=== PATIENT | female | born 1980 | race Caucasian/White ===

== ENCOUNTER 2019-11-19 19:22 | Emergency (ER) | payer BC, SELFPAY ==
--- NOTE | ~2019-11-19 | CT_ITS ---
EXAMINATION: CT abdomen pelvis wo con EXAM DATE: 11/19/2019 21:07 INDICATION: Right flank pain and hematuria. TECHNIQUE: Spiral CT of the abdomen and pelvis was performed without contrast. Axial, coronal and sag ittal images were reviewed. The dose-length product (DLP) for this examination was 175.94 mGy-cm. T he exposure was tailored according to patient size (auto mA exposure control), and iterative reconstr uction (ASIR) was used as additional dose reduction technique. There is no prior study for compariso n. FINDINGS: There is a 4 mm stone in the right ureteropelvic junction, with mild obstructive nephropath y. No other genitourinary calcifications. The uterus is anteverted and morphologically normal. The bladder is unremarkable. The liver, spleen, adrenal glands and pancreas are unremarkable. Gallblad audrey is unremarkable. No biliary obstruction. There is no retroperitoneal or pelvic lymphadenopathy. The appendix is not positively visualized. There is no pericecal inflammatory change to suggest appe ndicitis. The stomach and small bowel are unremarkable. There is expected amount of colonic stool. No free intraperitoneal gas. The heart is normal in size. There are no pericardial or pleural e ffusions. The lung bases are unremarkable. There are no osteoblastic or osteolytic lesions identifi ed. IMPRESSION: Right UPJ 4 mm stone, mild obstructive nephropathy. Urologist consultants would appreciat e KUB as baseline for follow-up, treatment planning. Reviewed, dictated and finalized at location A. IMPRESSION: Right UPJ 4 mm stone, mild obstructive nephropathy. Urologist consu ltants would appreciate KUB as baseline for follow-up, treatment planning.
--- NOTE | 2019-11-19 19:30 | ED.ABDPAIN ---
HPI - Abdominal Pain General Chief Complaint: Abdominal Pain Stated Complaint: abd pain/ back pain Time Seen by Provider: 11/19/19 19:37 Source: patient Mode of arrival: ambulatory Limitations: no limitations History of Present Illness HPI narrative: 39-year-old woman comes in today complaining of right-sided flank pain which has been present since last evening. Patient states that the pain got somewhat better overnight but then worse today. Patient states that she feels nauseous but has had no fever, vomiting, dysuria, hematuria, frequent urination, diarrhea, cough, cold symptoms, vaginal bleeding, vaginal discharge or injury. She states there is a family history of kidney stones but she has never had kidney stones. MD elicited complaint: flank pain Pertinent past history: other ( Endometriosis, uterine fibroids) Onset (ago): hour(s) (24) Pain Consistency: colicky Location: R flank Severity: severe Quality: aching Radiation: none Migration to: no migration Exacerbating factors: nothing Relieving factors: nothing Associated symptoms: nausea Related Data Home Medications Medication Instructions Recorded Confirmed fluoxetine 10 mg PO DAILY 11/19/19 11/19/19 lansoprazole 30 mg PO DAILY 11/19/19 11/19/19 levonorgestrel-ethinyl estrad 1 tablet PO DAILY 11/19/19 11/19/19 [Sronyx] loratadine 10 mg PO DAILY 11/19/19 11/19/19 Allergies Allergy/AdvReac Type Severity Reaction Status Date / Time No Known Allergies Allergy Unverified 04/03/14 13:33 Review of Systems Constitutional: Constitutional: Denies chills, Denies fever(s) and Denies weakness Eyes: Eyes: Denies change in vision and Denies photophobia ENT: Denies dysphagia, Denies nasal congestion and Denies sore throat Cardiovascular: Cardiovascular: Denies chest pain and Denies radiating jaw, neck or arm pain Respiratory: Respiratory: Denies cough, Denies dyspnea and Denies wheezing Gastrointestinal: Gastrointestinal: Reports abdominal pain, Denies diarrhea, Reports nausea and Denies vomiting Genitourinary: Genitourinary: Denies hematuria, Denies nocturia and Denies dysuria Musculoskeletal: Musculoskeletal: Denies back pain, Denies arthralgias and Denies joint swelling Integumentary/Breasts: Skin/Breast: Denies pruritus, Denies erythema and Denies rash Neurologic: Denies vertigo, Denies dizziness and Denies syncope Endocrine: Endocrine: Denies polydipsia and Denies polyuria Hematologic/Lymphatic: Hematologic/Lymphatic: Denies easy bleeding and Denies easy bruising Allergic/Immunologic: Allergic/Immunologic: Denies throat swelling and Denies tongue swelling PMFSH Past Medical History Medical History Endometriosis GERD (gastroesophageal reflux disease) Seasonal allergies Surgical History Surgical History History of laparoscopy Exam Const: General: healthy appearing and alert Orientation/consciousness: patient oriented x3 Limitations: no limitations Other: moderate acute distress HENMT: Ears: external ears normal, EAC's normal and TM abnormal Mouth: Yes Normal oral and palatal mucosa present and Yes moist mucous membranes Throat: posterior oropharynx normal and uvula midline Eyes: Conjunctivae: conjunctivae normal Pupils: Equal, round and reactive pupils present EOM: EOMs intact bilaterally Resp: Effort & Inspection: normal respiratory effort and not labored Auscultation: clear to auscultation bilaterally, no rales, no rhonchi and no wheezes Cardio: Rate: regular rate Rhythm: regular rhythm Heart sounds: no murmurs GI: Inspection: non-distended GI Palp: Yes Soft to palpation, No Guarding due to palpation present (GI), No Rigid due to palpation and No Palpable mass present Other: Tenderness palpation of the right upper quadrant and the right flank. : General: Yes no CVA tenderness Skin: General skin exam: normal col
[2019-11-19 19:36] VITALS: BP 136/84; PULSE 92; RESP 16; TEMP 36.9; O2SAT 99
[2019-11-19 19:39] LABS: Add Urine Microscopic? YES; Appearance Urine Clear (Clear); Bilirubin Urine Negative (Negative); Blood Urine 3+ (Negative); Color Urine Yellow (Yellow); Glucose Urine UA Negative (Negative); Ketones Urine Negative (Negative); Leukocyte Esterase Ur Negative LEU/UL (Negative); Nitrate Urine Negative (Negative); Protein Urine Trace (Negative); Specific Grav Ur >= 1.030 (1.010-1.020); pH Urine 6.5 (5.0-8.0)
[2019-11-19 19:46] LABS: Bacteria Urine 1+ /hpf; Mucus Urine Few /lpf; RBC Urine 51-75 /hpf (0-2); Squamous Epithelial Cell Urine Few /hpf (Few); WBC Urine 0-3 /hpf (0-3)
[2019-11-19] MEDS: ONDANSETRON INJ 4 MG/2 ML VIAL IV PUSH (19:51)
[2019-11-19] MEDS: HYDROMORPHONE HCL 2 MG/ML VIAL 0.5 MG IV PUSH ×2 (19:52→20:52)
[2019-11-19] MEDS: PANTOPRAZOLE SODIUM IV 40 MG VIAL IV PUSH (19:52)
[2019-11-19] MEDS: SODIUM CHLORIDE 0.9% IV 1,000 ML 999 ML IV CONT (19:52)
--- NOTE | 2019-11-19 19:56 | PC.NURSE ---
PT REPORTS LARGE FAMILY HISTORY OF KIDNEY STONES
[2019-11-19 19:58] LABS: Basophils Absolute Auto 0.03 K/mm3 (0.00-0.10); Basophils Percent Auto 0.5 % (0.0-1.0); Eosinophils Absolute Auto 0.15 K/mm3 (0.02-0.50); Eosinophils Percent Auto 2.3 % (1.0-6.0); Hematocrit 34.4 % (35.0-49.0); Immature Granulocyte Absolute 0.02 K/mm3 (0.00-0.00); Immature Granulocyte Percent A 0.3 % (0.0-0.0); Lymphocytes Absolute Auto 2.52 K/mm3 (1.10-4.50); Lymphocytes Percent Auto 38.9 % (18.0-42.0); Mean Corpuscular HGB Conc 34.9 g/dL (32.0-36.0); Mean Corpuscular Hemoglobin 30.8 pg (27.0-31.0); Mean Corpuscular Volume 88.4 fL (78.0-102.0); Mean Platelet Volume 8.6 fl (9.2-11.8); Monocytes Absolute Auto 0.52 K/mm3 (0.10-0.90); Neutrophils Absolute Auto 3.2 K/mm3 (1.7-7.2); Platelet Count Result 367 K/mm3 (150-420); Red Blood Count 3.89 M/mm3 (4.20-5.40); Red Cell Distribution Width 12.4 % (11.6-14.4); White Blood Count 6.5 K/mm3 (4.8-10.8)
[2019-11-19 20:10] LABS: INR 0.9; Partial Thromboplastin Time 26.8 SEC (22.3-31.6); Prothrombin Time 9.6 Seconds (9.64-11.0)
[2019-11-19 20:17] LABS: Alanine Aminotransferase 20 U/L (14-59); Albumin Level 3.2 g/dL (3.4-5.0); Alkaline Phosphatase 46 U/L (46-116); Anion Gap 13.3 mmol/L (7-16); Aspartate Amino Transferase 17 U/L (15-37); Bilirubin,Total 0.1 mg/dL (0.00-1.00); Blood Urea Nitrogen 11 mg/dL (7-18); Calcium 8.2 mg/dL (8.5-10.1); Carbon Dioxide 26 mmol/L (21-32); Chloride 105 mmol/L (98-108); Estimated Glomerular Filt Rate > 60; Glucose 107 mg/dL (70-99); Lipase 167 U/L (73-393); Osmolality Calculated 291 mOsm/kg (285-295); Potassium 3.3 mmol/L (3.5-5.1); Sodium 141 mmol/L (136-145)
[2019-11-19 20:24] LABS: Beta HCG Quantitative < 1.00 mIU/mL (0-6)
[2019-11-19] MEDS: KETOROLAC 30 MG/ML VIAL (*BKC) IV PUSH (20:52)
[2019-11-19 22:02] VITALS: BP 111/72; PULSE 81
== END 2019-11-19 22:04 | disposition home or self-care (01) ==
PROVIDERS: Emergency Provider Emergency Medicine; PCP Internal Medicine
DX: N20.1 Calculus of ureter (principal)
CPT/HCPCS: 36415; 74176; 80053; 81001; 83690; 84702; 85025; 85610; 85730; 96361; 96374; 96375; 96376; 99283; 99284; A9270; C9113; J1170; J1885; J2405; J7030

== ENCOUNTER 2020-04-02 11:53 | Outpatient (CLI) | payer BC, SELFPAY ==
[2020-04-02 12:03] LABS: Basophils Absolute Auto 0.03 K/mm3 (0.00-0.10); Basophils Percent Auto 0.4 % (0.0-1.0); Eosinophils Absolute Auto 0.08 K/mm3 (0.02-0.50); Eosinophils Percent Auto 0.9 % (1.0-6.0); Hematocrit 37.9 % (35.0-49.0); Hemoglobin 12.6 g/dL (12.0-15.0); Immature Granulocyte Absolute 0.04 K/mm3 (0.00-0.00); Immature Granulocyte Percent A 0.5 % (0.0-0.0); Lymphocytes Absolute Auto 1.68 K/mm3 (1.10-4.50); Lymphocytes Percent Auto 19.8 % (18.0-42.0); Mean Corpuscular HGB Conc 33.2 g/dL (32.0-36.0); Mean Corpuscular Hemoglobin 30.3 pg (27.0-31.0); Mean Corpuscular Volume 91.1 fL (78.0-102.0); Mean Platelet Volume 8.6 fl (9.2-11.8); Monocytes Absolute Auto 0.62 K/mm3 (0.10-0.90); Monocytes Percent Auto 7.3 % (2.0-11.0); Neutrophils Percent Auto 71.1 % (50.0-70.0); Platelet Count Result 380 K/mm3 (150-420); Red Blood Count 4.16 M/mm3 (4.20-5.40); White Blood Count 8.5 K/mm3 (4.8-10.8)
[2020-04-02 12:08] LABS: Appearance Urine Sl Cloudy (Clear); Bilirubin Urine Negative (Negative); Color Urine Yellow (Yellow); Glucose Urine UA Negative (Negative); Ketones Urine Negative (Negative); Leukocyte Esterase Ur Negative (Negative); Nitrate Urine Negative (Negative); Protein Urine Negative (Negative); Specific Grav Ur 1.025 (1.010-1.020); Urobilinogen Urine 0.2 mg/dL (0.2-1.0); pH Urine 5.5 (5.0-8.0)
[2020-04-02 12:12] LABS: Add Urine Microscopic? YES; Bacteria Urine Trace /hpf; Blood Urine Trace-Intact (Negative); RBC Urine 0-2 /hpf (0-2); Squamous Epithelial Cell Urine Many /hpf (Few); WBC Urine 0-3 /hpf (0-3)
[2020-04-02 12:55] LABS: Alanine Aminotransferase 18 U/L (14-59); Albumin Level 3.5 g/dL (3.4-5.0); Alkaline Phosphatase 60 U/L (46-116); Anion Gap 7 mmol/L (8-16); Aspartate Amino Transferase 12 U/L (15-37); Bilirubin,Total 0.5 mg/dL (0.00-1.00); Blood Urea Nitrogen 11 mg/dL (7-18); Calcium 8.7 mg/dL (8.5-10.1); Carbon Dioxide 27 mmol/L (21-32); Chloride 105 mmol/L (98-108); Cholesterol 229 mg/dL (0-200); Estimated Glomerular Filt Rate > 60; Glucose 85 mg/dL (70-99); HDL Direct 43 mg/dL (40-60); LDL Cholesterol Calculated 154 mg/dL (<130); Osmolality Calculated 286 mOsm/kg (285-295); Potassium 3.9 mmol/L (3.5-5.1); Sodium 139 mmol/L (136-145); Thyroid Stimulating Hormone 1.23 uIU/mL (0.36-3.74); Total Protein 7.2 g/dL (6.4-8.2); Triglycerides 162 mg/dL (0-150)
== END 2020-04-02 11:54 | disposition home or self-care (01) ==
LOC: CHSLAB 11:56
PROVIDERS: PCP Internal Medicine; Visit Provider Internal Medicine
DX: Z00.00 Encounter for general adult medical examination without abnormal findings (principal)
CPT/HCPCS: 36415; 80053; 80061; 81001; 84443; 85025

== ENCOUNTER 2020-11-24 09:20 | Outpatient (CLI) | payer BC, SELFPAY ==
--- NOTE | ~2020-11-24 | MM_ITS ---
EXAMINATION: MM screening man BI w kevin HISTORY: Baseline screening mammogram TECHNIQUE: Craniocaudal and mediolateral oblique 3-D tomosynthesis images were obtained and synthetic 2-D images were generated. CAD analysis was submitted and interpreted. COMPARISON: None, baseline BREAST PARENCHYMAL COMPOSITION: The breasts are heterogeneously dense, which may obscure small masses . FINDINGS: There is no evidence of suspicious mass, calcification, or architectural distortion to sugg est malignancy in either breast. IMPRESSION: 1. No mammographic evidence of malignancy. 2. Recommend routine screening mammography in one year. BI-RADS Category 1: Negative Reviewed, dictated and finalized at location A.
== END 2020-11-24 09:21 | disposition home or self-care (01) ==
LOC: CHSIMG 09:21
PROVIDERS: PCP Internal Medicine; Visit Provider Obstetrics & Gynecology
DX: Z12.31 Encounter for screening mammogram for malignant neoplasm of breast (principal)
CPT/HCPCS: 77063; 77067

== ENCOUNTER 2021-05-14 09:00 | Outpatient (CLI) | payer BC, SELFPAY ==
[2021-05-14 09:16] LABS: Appearance Urine Clear (Clear); Basophils Absolute Auto 0.02 K/mm3 (0.00-0.10); Basophils Percent Auto 0.4 % (0.0-1.0); Bilirubin Urine Negative (Negative); Color Urine Light Yellow (Yellow); Eosinophils Absolute Auto 0.07 K/mm3 (0.02-0.50); Eosinophils Percent Auto 1.3 % (1.0-6.0); Glucose Urine UA Negative (Negative); Hematocrit 38.7 % (35.0-49.0); Hemoglobin 13.1 g/dL (12.0-15.0); Immature Granulocyte Absolute 0.02 K/mm3 (0.00-0.00); Immature Granulocyte Percent A 0.4 % (0.0-0.0); Ketones Urine Negative (Negative); Leukocyte Esterase Ur Trace (Negative); Lymphocytes Absolute Auto 1.63 K/mm3 (1.10-4.50); Lymphocytes Percent Auto 30.5 % (18.0-42.0); Mean Corpuscular HGB Conc 33.9 g/dL (32.0-36.0); Mean Corpuscular Hemoglobin 30.3 pg (27.0-31.0); Mean Corpuscular Volume 89.4 fL (78.0-102.0); Mean Platelet Volume 8.5 fl (9.2-11.8); Monocytes Absolute Auto 0.42 K/mm3 (0.10-0.90); Monocytes Percent Auto 7.9 % (2.0-11.0); Neutrophils Absolute Auto 3.2 K/mm3 (1.7-7.2); Neutrophils Percent Auto 59.5 % (50.0-70.0); Nitrate Urine Negative (Negative); Platelet Count Result 377 K/mm3 (150-420); Protein Urine Negative (Negative); Red Blood Count 4.33 M/mm3 (4.20-5.40); Red Cell Distribution Width 12.2 % (11.6-14.4); Specific Grav Ur 1.015 (1.010-1.020); Urobilinogen Urine 0.2 mg/dL (0.2-1.0); White Blood Count 5.3 K/mm3 (4.8-10.8)
[2021-05-14 09:22] LABS: Add Urine Microscopic? YES; Bacteria Urine 1+ /hpf; Blood Urine Trace-Intact (Negative); Mucus Urine Moderate /lpf; RBC Urine 0-2 /hpf (0-2); Squamous Epithelial Cell Urine Moderate /hpf (Few)
[2021-05-14 10:17] LABS: Alanine Aminotransferase 18 U/L (14-59); Albumin Level 3.3 g/dL (3.4-5.0); Alkaline Phosphatase 47 U/L (46-116); Anion Gap 10 mmol/L (8-16); Aspartate Amino Transferase 11 U/L (15-37); Bilirubin,Total 0.4 mg/dL (0.00-1.00); Blood Urea Nitrogen 14 mg/dL (7-18); Calcium 8.3 mg/dL (8.5-10.1); Carbon Dioxide 27 mmol/L (21-32); Chloride 106 mmol/L (98-108); Cholesterol 225 mg/dL (0-200); Estimated Glomerular Filt Rate > 60; Glucose 83 mg/dL (70-99); HDL Direct 43 mg/dL (40-60); LDL Cholesterol Calculated 161 mg/dL (<130); Osmolality Calculated 295 mOsm/kg (285-295); Potassium 4.2 mmol/L (3.5-5.1); Sodium 143 mmol/L (136-145); Thyroid Stimulating Hormone 2.02 uIU/mL (0.36-3.74); Total Protein 6.9 g/dL (6.4-8.2); Triglycerides 103 mg/dL (0-150)
== END 2021-05-14 09:01 | disposition home or self-care (01) ==
LOC: CHSLAB 09:01
PROVIDERS: PCP Internal Medicine; Visit Provider Internal Medicine
DX: Z00.00 Encounter for general adult medical examination without abnormal findings (principal)
CPT/HCPCS: 36415; 80053; 80061; 81001; 84443; 85025

== ENCOUNTER 2022-02-23 07:20 | Outpatient (CLI) | payer BC, SELFPAY ==
--- NOTE | ~2022-02-23 | MM_ITS ---
EXAMINATION: MM screening man BI w kevin HISTORY: Screening mammogram TECHNIQUE: Craniocaudal and mediolateral oblique 3-D tomosynthesis images were obtained and synthetic 2-D images were generated. CAD analysis was submitted and interpreted. COMPARISON: 11/24/2020 BREAST PARENCHYMAL COMPOSITION: The breasts are heterogeneously dense, which may obscure small masses . FINDINGS: There is no suspicious mass, calcification, or architectural distortion to suggest malignan cy in either breast. There has been no suspicious interval change. IMPRESSION: 1. No mammographic evidence of malignancy. 2. Recommend routine screening mammography in one year. BI-RADS Category 1: Negative Reviewed, dictated and finalized at location A.
== END 2022-02-23 07:21 | disposition home or self-care (01) ==
LOC: CHSIMG 07:22
PROVIDERS: PCP Internal Medicine; Visit Provider Obstetrics & Gynecology
DX: Z12.31 Encounter for screening mammogram for malignant neoplasm of breast (principal)
CPT/HCPCS: 77063; 77067

== ENCOUNTER 2022-06-28 08:53 | Outpatient (CLI) | payer BC, SELFPAY | END 2022-06-28 08:54 | disposition home or self-care (01) | LOC: CHSAUDIO 08:55 | PROVIDERS: PCP Internal Medicine; Visit Provider Otolaryngology | DX: H91.93 Unspecified hearing loss, bilateral (principal); H93.13 Tinnitus, bilateral | CPT/HCPCS: 92557; 92567 ==

== ENCOUNTER 2022-07-20 06:40 | Emergency (ER) | payer BC, SELFPAY ==
[2022-07-20 06:43] VITALS: BP 125/85; PULSE 91; RESP 16; TEMP 36.6; O2SAT 100
--- NOTE | 2022-07-20 07:26 | ED.HA ---
HPI - Headache General Chief Complaint: Headache Stated Complaint: headache Time Seen by Provider: 07/20/22 07:26 Source: patient and family Mode of arrival: ambulatory Limitations: no limitations History of Present Illness HPI Narrative: Presents with left-sided migraine headaches similar to the past, over the last few days, associated with nausea. She denies any fever, chills, vomiting, respiratory symptoms, chest pain or back pain or abdominal pain. Patient when she get resistant migraine headache she started on prednisone 10 mg twice a day for 7 days, this time started on 50 mg once a day and to decrease the amount by 10 mg daily over 5 days. Related Data Home Medications Medication Instructions Recorded Confirmed fluoxetine 10 mg capsule 20 mg PO DAILY 11/19/19 06/30/21 lansoprazole 30 mg capsule,delayed 30 mg PO DAILY 11/19/19 06/30/21 release loratadine 10 mg capsule 10 mg PO DAILY 11/19/19 06/30/21 levonorgestrel-ethinyl estradiol 1 tablet PO DAILY 07/20/22 0.1 mg-20 mcg tablet (Sronyx) rimegepant 75 mg disintegrating 75 mg PO ONCE PRN Headache 07/20/22 tablet (Nurtec ODT) Allergies Allergy/AdvReac Type Severity Reaction Status Date / Time No Known Allergies Allergy Verified 07/20/22 07:39 Review of Systems Review of Systems: All systems reviewed & are unremarkable except as noted in HPI and below PMFSH Past Medical History Medical History (Updated 07/20/22 @ 09:40 by Jose Luis Ball MD) Endometriosis GERD (gastroesophageal reflux disease) Seasonal allergies Surgical History Surgical History History of laparoscopy Social History Social History Smoking status: Never smoker Alcohol intake: never Substance use: never Exam Narrative: General appearance: Well-developed, well-nourished Skin: Normal color Head: Normocephalic, nontraumatic Eyes: Clear conjunctiva ENT: Oropharynx normal, ears normal, nose normal Neck: Supple, nontender Chest and respiratory: Airway patent, no respiratory distress, no accessory muscle use Heart: Regular rate/rhythm Abdomen: Soft, nontender, no organomegaly, quiet bowel sounds Vascular: Normal peripheral pulses, normal capillary refill. Musculoskeletal: Normal range of motion, nontender back Neurologic: Alert and oriented ?3, [employer] is normal as tested, no gross motor deficit Course Vital Signs Vital signs: Vital Signs Temperature 36.6 C 07/20/22 06:43 Pulse Rate 91 07/20/22 06:43 Respiratory Rate 16 07/20/22 06:43 Blood Pressure 125/85 07/20/22 06:43 Pulse Oximetry 100 07/20/22 06:43 Oxygen Delivery Room Air 07/20/22 06:43 Temperature 36.6 C 07/20/22 06:43 Pulse Rate 91 07/20/22 06:43 Respiratory Rate 16 07/20/22 06:43 Blood Pressure 125/85 07/20/22 06:43 Pulse Oximetry 100 07/20/22 06:43 Oxygen Delivery Room Air 07/20/22 06:43 MDM - Headache Differential Diagnosis Differential diagnosis: Likely migraine, tension headache, headache and sinusitis Critical Care Time Critical Care Time Critical Care Time: Yes Total Critical Care Time: 30 Discharge Plan Discharge Clinical Impression: Migraine Patient Disposition: Home, Self-Care Condition: Improved Instructions: Antibiotic Form, Migraine Headache (ED) Additional Instructions: Return if symptoms are worsening , call your family physician for appointment, take Tylenol as as needed for aches and pain, continue home medications. Prescriptions: No Action lansoprazole 30 mg capsule,delayed release(DR/EC) 30 mg PO DAILY fluoxetine 10 mg cap
[2022-07-20] MEDS: diphenhydrAMINE HCl INJ 50 MG/ML VIAL IV PUSH (08:39)
[2022-07-20] MEDS: METOCLOPRAMIDE HCL INJ 10 MG/2 ML VIAL IV PUSH (08:40)
[2022-07-20] MEDS: SODIUM CHLORIDE 0.9% IV 1,000 ML 999 ML IV CONT (08:40)
[2022-07-20] MEDS: KETOROLAC 30 MG/ML VIAL (*BKC) IV PUSH (08:40)
[2022-07-20 09:51] VITALS: BP 103/79; PULSE 80; RESP 16; O2SAT 100
== END 2022-07-20 09:54 | disposition home or self-care (01) ==
PROVIDERS: Emergency Provider Emergency Medicine; PCP Internal Medicine
DX: G43.909 Migraine, unspecified, not intractable, without status migrainosus (principal); K21.9 Gastro-esophageal reflux disease without esophagitis; N80.9 Endometriosis, unspecified
CPT/HCPCS: 96361; 96374; 96375; 99284; J1200; J1885; J2765; J7030

== ENCOUNTER 2023-07-20 10:57 | Outpatient (CLI) | payer BC, SELFPAY ==
--- NOTE | ~2023-07-20 | MM_ITS ---
EXAMINATION: MM screening [facility] BI w kevin HISTORY: Screening mammogram TECHNIQUE: Craniocaudal and mediolateral oblique 3-D tomosynthesis images were obtained and synthetic 2-D images were generated. CAD analysis was submitted and interpreted. COMPARISON: 02/23/2022, 11/24/2020 BREAST PARENCHYMAL COMPOSITION: The breasts are heterogeneously dense, which may obscure small masses . FINDINGS: No suspicious mass, calcification, or architectural distortion are identified in either sylvie ast to suggest malignancy. There has been no suspicious interval change. IMPRESSION: 1. No mammographic evidence of malignancy. 2. Recommend routine screening mammography in one year. BI-RADS Category 1: Negative Reviewed, dictated and finalized at location A. [employer]
== END 2023-07-20 10:58 | disposition home or self-care (01) ==
LOC: CHSIMG 10:59
PROVIDERS: PCP Internal Medicine; Visit Provider Obstetrics & Gynecology
DX: Z12.31 Encounter for screening mammogram for malignant neoplasm of breast (principal)
CPT/HCPCS: 77063; 77067

== ENCOUNTER 2024-10-17 07:15 | Outpatient (CLI) | payer BC, SELFPAY ==
--- NOTE | ~2024-10-17 | MM_ITS ---
EXAMINATION: MM screening man BI w kevin HISTORY: Screening TECHNIQUE: Craniocaudal and mediolateral oblique 3-D tomosynthesis images were obtained and synthetic 2-D images were generated. CAD analysis was submitted and interpreted. COMPARISON: Comparison to multiple prior studies sequentially, with oldest reviewed study dated 11/24. BREAST PARENCHYMAL COMPOSITION: Not dense: There are scattered areas of fibroglandular density. FINDINGS: There is no evidence of suspicious mass, calcification, or architectural distortion to sugg est malignancy in either breast. There has been no suspicious interval change. IMPRESSION: 1. No mammographic evidence of malignancy. 2. Recommend routine screening mammography in one year. BI-RADS Category 1: Negative Reviewed, dictated and finalized at location A.
--- OUTSIDE RECORDS SUMMARY | 2024-10-17 07:18 | XMS_ITS | Clinical Summary ---
Author Organization [facility], formerly [facility] Address [address] [address] Care Team Providers Care Turf Keeper Name Role Phone Josh Lopez MD Primary Care Provider [phone] Marquis Tesfaye MD Unavailable [phone] Allergies No known active allergies Medications lansoprazole (PREVACID) 30 mg capsule Take by mouth Activ e FLUoxetine (PROzac) 20 mg capsule 09/09/19 22 Active loratadine (CLARITIN) 10 mg tablet Active levonorgestreL -ethinyl estrad (LUTERA) 0.1-20 mg-mcg per tablet Active Saccharomyces boulardii (FLORASTOR) 250 mg capsule Take by mouth A ctive ondansetron (ZOFRAN) 4 mg tablet Take 1-2 tablets by mouth 30 minutes prior to drinking colonoscopy prep. May repeat with second dose. 4 tablet 04/24/20 22 Active Additional Information Patient not taking.Reported on 10/10/2024 rimegepant (Nurtec ODT) tablet,disinte gratingIndicat ions:Migraine Take 1 tablet (75 mg total) by mouth every other day 16 tablet 11 10/13/19 23 Active Additional Information Patient not taking.Reported on 10/10/2024 predniSONE (DELTASONE) 10 mg tablet Take 5 tablets (50mg) by mouth on day one, then 4 tablets (40mg) on day 2 and continue to decrease by 1 tablet (10mg) daily until finished 15 tablet 07/18/19 23 025 Discontinued Active Problems Problem Noted Date Diagnosed Date Blood in stool 02/19/2020 Overview (02/19/2020): Added automatically from request for surgery [id number] Personal history of colonic polyps 02/19/2020 Overview (02/19/2020): Added automatically from request for surgery [id number] Constipation 10/26/2016 Adenoma of large intestine 06/21/2016 Altered bowel function 06/16/2015 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 Anxiety 10/07/2014 Chronic migraine with aura 10/07/2014 Headache 11/29/2013 Overview (10/20/2016): HEADACHE Asthma 11/29/2013 Overview (10/20/2016): ASTHMA NOS Hyperlipidemia 11/29/2013 Overview (10/20/2016): HYPERLIPIDEMIA NEC/NOS Encounters Date Type Department Care Team Description 10/16/2024 2:25 PM CDT Lab [address] [address] Thrombocytosis 10/16/2024 Results Follow-Up [facility] [address] [place] [phone] Ann Marie Villavicencio MD 10/14/2024 Orders Only [facility] [address] [place] [phone] Pat Butler 10/10/2024 10:15 AM CDT Lab [facility] - Lab Collection [address] [place] [id number] Thrombocytosis 10/10/2024 10:00 AM CDT Lab [facility] [address] [place] [phone] 10/10/2024 9:00 AM CDT Office Visit [facility] [address] [place] [phone] Ann Marie Villavicencio MD Thrombocytosis (Primary Dx); Elevated platelet count 10/03/2024 Telephone [facility] [address] [place] [phone] Vesna Stephens from Last 3 Months Immunizations Immunization Administration Dates Next Due Influenza, Quadrivalent, Spl it, Preservative Free, Intramuscular 04/27/2021,03/31/2020,03/26/2019 Influenza, Unspecified 04/07/2018 Tdap 04/27/2021 Surgical History Surgery Date Site/Laterality Comments LAPAROSCOPY Exploratory Laparoscopy - (Added by TW Conv) Medical History Medical History Date Comments Asthma Asthma Hyperlipidemia Hyperlipidemia Hx Other Medical Headache, migra ine Personal history of other di seases of the female genital tract History of endometriosis - ( Added by TW Conv) Family History Medical History Relation Name Comments Coronary artery disease Mother Leora nary artery disease; Hyperlipidemia Mother Hyperlipidemi a; Migraines Mother Family history of migraine headaches - (Added by TW Conv) Relation Name Status Comments Mother Social History Tobacco Use Types Packs/Day Years Used Date Smoking Tobacco: Former Cigarettes Passive Smoke Exposure: Never Smokeless Tobacco: Never Tobacco Cessation:Counseling Given: Not Answered Alcohol Use Standard Drinks/Week Comments No 0 (1 standard drink = 0.6 oz pur e alcohol) AUDIT-C Answer Date Recorded Frequency of Alcohol Consumption Not on file 05/01/2022 Q2: How many drinks containi ng alcohol do you have on a typical day when you are drinking? Patient does not drink Frequency of Binge Drinking Not on file 04/15 Comments No Sex and Gender Information Value Date Recorded Sex Assigned at Not on file Legal Sex Female 2:45 PM DONATIONS ATTENDANT Gender Identity Not on file Sexual Orientation Not on file Obstetrics History Last Filed Vital Signs Vital Sign Reading Time Taken Comments Blood Pressure 121/74 10/10/2024 9:01 AM CDT Pulse 76 10/10/2024 9:01 AM CDT Temperature 36.6 C (97.8 F) 10/10/2024 9:01 AM CDT Respiratory Rate 17 05/01/2022 8:40 AM CDT Oxygen Saturation 99% 10/10/2024 9:01 AM CDT Inhaled Oxygen Concentration - - Weight 61.5 kg (135 lb 9.6 oz) 10/10/2024 9:01 A M CDT Height 158 cm (5' 2.2 ) 10/10/2024 9:01 AM CDT Body Mass Index 24.64 10/10/2024 9:01 AM CDT Plan of Treatment Health Maintenance Due Date Last Done Comments Breast Cancer Screening-Mammogram 1980 Cervical Cancer Screening 1980 Depression Screening 1980 Hepatitis C Screening 1978 Hepatitis B Screening 1996 Regular Well Visit/Exam 18-64 1996 Pneumococcal vaccine <65 (1 of 2 - PCV) 1997 Covid-19 Vaccine ( - season) 2024 07/22/2021, 10/15/2020, 09/17/2020 Influenza Vaccine (Season Ended) 2025 04/27/2021, 03/31/2020, 03/26/2019, Additional history exists DTaP/Tdap/Td Vaccine (2 - Td or Tdap) 04/27/2031 04/27/2021 Colon Cancer Screening-Colonoscopy 05/01/2032 05/01/2022, 09/18/2016, 07/26/2015 HPV Vaccines Aged Out No longer eligi ble based on patient's age to complete this topic Procedures Procedure Name Priority Date/Time Associated Diagnosis Comments EGFR Routine 10/16/2024 2:39 PM CDT Thrombocytosis BLOOD MISC TO OSAGE Routine 10/16/2024 2: 39 PM CDT DIFFERENTIAL AUTO Routine 10/16/2024 2:3 9 PM CDT Thrombocytosis COMPREHENSIVE METABOLIC PANEL Routine 10/16/2024 2:39 PM CDT Thrombocytosis CBC WITH AUTO DIFFERENTIAL Routine 10/16/2024 2:39 PM CDT Thrombocytosis EGFR Routine 10/10/2024 10:11 AM CDT Thrombocytosis DIFFERENTIAL AUTO Routine 10/10/2024 10: 11 AM CDT Thrombocytosis CRP (ACUTE PHASE) Routine 10/10/2024 10: 11 AM CDT Thrombocytosis ERYTHROCYTE SEDIMENTATION RATE Routine 10/10/2024 10:11 AM CDT Thrombocytosis FERRITIN Routine 10/10/2024 10:11 AM CDT Thrombocytosis IRON PROFILE W/ IBC Routine 10/10/2024 1 0:11 AM CDT Thrombocytosis COMPREHENSIVE METABOLIC PANEL Routine 10/10/2024 10:11 AM CDT Thrombocytosis CBC WITH AUTO DIFFERENTIAL Routine 10/10/2024 10:11 AM CDT Thrombocytosis FARHEEN-WHITNEY VIRUS VCA ANTIBODY PANEL Routine 10/10/2024 10:11 AM CDT Thrombocytosis COLONOSCOPY 05/01/2022 7:59 AM CDT from Last 3 Months or Most Recently Relevant to Health Maintenance Results * eGFR (10/16/2024 2:39 PM CDT) eGFR >90 >=60 mL/min/1. 73 m2 Comment: Interpretive Data Reference Interval Normal >/= 90 mL/min/1.73m2 Mildly decreased* 60 - 89 mL/min/1.73m2 Mildly to moderately decreased 45 - 59 mL/min/1.73m2 Moderately to severely decreased 30 - 44 mL/min/1.73m2 Severely decreased 15 - 29 mL/min/1.73m2 Kidney Failure < 15 mL/min/1.73m2 *Relative to young adult level Estimated glomerular filtration rate is determined by the 2020 CKD-EPI equation recommended by the National Kidney Foundation (A Unifying Approach to GFR Estimation: Recommendations of the NKF-ASK Task Force on Reassessing the Inclusion of Race in Diagnosing Kidney Disease, JASN 202). The CKD-EPI equation should not be used for patients with unstable renal function and has not been validated in children and those over 70. Current interpretive data was last reviewed 2021. Blood 10/16/2024 2:39 PM CDT 10/16/2024 2:45 PM CDT us Ann Marie Villavicencio MD LAB BLOOD ORDERABLES Tiffani palumbo Result [facility] ([facility]) 1 [facility] Department [place] [address] * Differential, auto (10/16/2024 2:39 PM CDT) Neutrophil abs 4.55 1.50 - 6.50 K/cumm Imm gran abs 0.03 0.00 - 0.10 K/cumm [facility] ([facility]) Lymphocyte abs 2.52 0.80 - 3.30 K/cumm [facility] ([facility]) Monocyte abs 0.65 0.20 - 0.80 K/cumm [facility] ([facility]) Eosinophil abs 0.11 0.00 - 0.50 K/cumm [facility] ([facility]) Basophil abs 0.05 0.00 - 0.10 K/cumm [facility] ([facility]) Neutrophil pct 57.5 % [facility] ([facility]) Comment: Interpretive Data Percent cell count reference ranges are not reported, since discordance with absolute values may lead to misinterpretation of CBC data. Current Interpretive Data was last revised on 2017. Imm gran pct 0.4 % [facility] ([facility]) Comment: Interpretive Data Percent cell count reference ranges are not reported, since discordance with absolute values may lead to misinterpretation of CBC data. Current Interpretive Data was last revised on 2017. Lymphocyte pct 31.9 % [facility] ([facility]) Comment: Interpretive Data Percent cell count reference ranges are not reported, since discordance with absolute values may lead to misinterpretation of CBC data. Current Interpretive Data was last revised on 2017. Monocyte pct 8.2 % [facility] ([facility]) Comment: Interpretive Data Percent cell count reference ranges are not reported, since discordance with absolute values may lead to misinterpretation of CBC data. Current Interpretive Data was last revised on 2017. Eosinophil pct 1.4 % [facility] ([facility]) Comment: Interpretive Data Percent cell count reference ranges are not reported, since discordance with absolute values may lead to misinterpretation of CBC data. Current Interpretive Data was last revised on 2017. Basophil pct 0.6 % [facility] ([facility]) Comment: Interpretive Data Percent cell count reference ranges are not reported, since discordance with absolute values may lead to misinterpretation of CBC data. Current Interpretive Data was last revised on 2017. Blood 10/16/2024 2:39 PM CDT 10/16/2024 2:45 PM CDT Ann Marie Villavicencio MD LAB BLOOD ORDERABLES Tiffani palumbo Result [facility] ([facility]) 1 [facility] Department [place] [address] * (ABNORMAL) CBC with auto differential (10/16/2024 2:39 PM CDT) WBC 7.91 3.80 - 9.90 K/cumm Hgb 12.4 11.9 - 15.5 g/dL [facility] Hct 36.1 35.6 - 45.5 % [facility] ([facility]) Plt 397 150 - 400 K/cumm [facility] ([facility]) MPV 8.6(L) 9.1 - 12.3 fL [facility] RBC 4.09 3.90 - 5.20 M/cumm [facility] MCV 88.3 81.3 - 96.4 fL [facility] MCH 30.3 27.1 - 33.3 pg [facility] MCHC 34.3 32.3 - 35.7 g/dL [facility] RDW CV 12.4 11.1 - 14.9 % [facility] RDW SD 39.8 35.7 - 48.1 fL [facility] NRBC abs 0.00 0.00 - 0.01 K/cumm [facility] Blood 10/16/2024 2:3 9 PM CDT 10/16/2024 2:45 PM CDT us Ann Marie Villavicencio MD LAB BLOOD ORDERABLES Tiffani palumbo Result [facility] ([facility]) 1 [facility] Department [place] [address] * Comprehensive metabolic panel (10/16/2024 2:39 PM CDT) Sodium 137 135 - 145 mmol/L Potassium, pl 3.8 3.3 - 4.9 mmol/L [facility] ([facility]) Chloride 102 97 - 110 mmol/L [facility] ([facility]) CO2 24 22 - 32 mmol/L [facility] ([facility]) Anion gap 11 2 - 15 mmol/L [facility] ([facility]) BUN 10 6 - 25 mg/dL [facility] ([facility]) Creatinine 0.67 0.60 - 1.10 mg/dL [facility] ([facility]) Glucose 82 70 - 199 mg/dL [facility] ([facility]) Comment: Interpretive Data Fasting glucose >/= 126 mg/dl is diagnostic for diabetes. Fasting is defined as no caloric intake for at least 8 hours. Fasting glucose between 100 mg/dl to 125 mg/dl is diagnostic of prediabetes. In a patient with classic symptoms of hyperglycemia or hyperglycemic crisis, a random glucose >/= 200 mg/dl is diagnostic for diabetes. In the absence of unequivocal hyperglycemia, results should be confirmed by repeat testing. The classification and Diagnosis of Diabetes Diabetes Care 202; 46: S19-S40. Current interpretive data was last revised 2022. Calcium 8.8 8.5 - 10.3 mg/dL [facility] ([facility]) Bilirubin, total <0.2 0.1 - 1.2 mg/dL [facility] ([facility]) Protein, pl 7.1 6.5 - 8.5 g/dL [facility] ([facility]) Albumin 4.0 3.5 - 5.0 g/dL [facility] ([facility]) Alk phos 54 40 - 130 Units/L [facility] ([facility]) ALT 12 7 - 45 Units/L [facility] ([facility]) AST 15 10 - 45 Units/L [facility] ([facility]) Blood 10/16/2024 2:39 PM CDT 10/16/2024 2:45 PM CDT us Ann Marie Villavicencio MD LAB BLOOD ORDERABLES Tiffani l Result [facility] ([facility]) 1 [facility] Department [place] [address] * eGFR (10/10/2024 10:11 AM CDT) eGFR >90 >=60 mL/min/1. 73 m2 Comment: Interpretive Data Reference Interval Normal >/= 90 mL/min/1.73m2 Mildly decreased* 60 - 89 mL/min/1.73m2 Mildly to moderately decreased 45 - 59 mL/min/1.73m2 Moderately to severely decreased 30 - 44 mL/min/1.73m2 Severely decreased 15 - 29 mL/min/1.73m2 Kidney Failure < 15 mL/min/1.73m2 *Relative to young adult level Estimated glomerular filtration rate is determined by the 2020 CKD-EPI equation recommended by the National Kidney Foundation (A Unifying Approach to GFR Estimation: Recommendations of the NKF-ASK Task Force on Reassessing the Inclusion of Race in Diagnosing Kidney Disease, JASN 2020). The CKD-EPI equation should not be used for patients with unstable renal function and has not been validated in children and those over 70. Current interpretive data was last reviewed 2021. Blood 10/10/2024 10:1 1 AM CDT 10/10/2024 10:38 AM CDT Ann Marie Villavicencio MD LAB BLOOD ORDERABLES Tiffani l Result MILENA [facility] Department [place] [address] * Differential, auto (10/10/2024 10:11 AM CDT) Neutrophil abs 5.9 1.5 - 6.5 K/cumm Comment:Testing performed by : [facility], [address] [place] [address], [place] [phone] Lymphocyte abs 2.0 0.8 - 3.3 K/cumm [facility] Comment:Testing performed by : [facility], [facility] [place] [address] Monocyte abs 0.5 0.2 - 0.8 K/cumm [facility] Comment:Testing performed by : [facility], [address] [place] [phone] Eosinophil abs 0.1 0.0 - 0.5 K/cumm [facility] Comment:Testing performed by : [facility], [address] [place] [phone] Basophil abs 0.0 0.0 - 0.1 K/cumm [facility] Comment:Testing performed by : [facility], [address] [place] [phone] Neutrophil pct 69.6 % [facility] Comment: Interpretive Data Percent cell count reference ranges are not reported, since discordance with absolute values may lead to misinterpretation of CBC data. Current Interpretive Data was last revised on 2017. Testing performed by: [facility], [address] [place] [phone] Lymphocyte pct 23.6 % [facility] Comment: Interpretive Data Percent cell count reference ranges are not reported, since discordance with absolute values may lead to misinterpretation of CBC data. Current Interpretive Data was last revised on 2017. Testing performed by: [facility], [address] [place] [phone] Monocyte pct 5.3 % [facility] Comment: Interpretive Data Percent cell count reference ranges are not reported, since discordance with absolute values may lead to misinterpretation of CBC data. Current Interpretive Data was last revised on 2017. Testing performed by: [facility], [address] [place] [phone] Eosinophil pct 1.1 % [facility] Comment: Interpretive Data Percent cell count reference ranges are not reported, since discordance with absolute values may lead to misinterpretation of CBC data. Current Interpretive Data was last revised on 2017. Testing performed by: [facility], [address] [place] [phone] Basophil pct 0.4 % [facility] Comment: Interpretive Data Percent cell count reference ranges are not reported, since discordance with absolute values may lead to misinterpretation of CBC data. Current Interpretive Data was last revised on 2017. Testing performed by: [facility], [address] [place] [phone] Blood 10/10/2024 10:1 1 AM CDT 10/10/2024 10:35 AM CDT Ann Marie Villavicencio MD LAB BLOOD ORDERABLES Tiffani l Result [facility] [place] [address] * Iron profile w/ IBC (10/10/2024 10:11 AM CDT) Iron 93 35 - 145 mcg/dL TIBC 392 250 - 400 mcg/dL [facility] Transferrin saturation 24 20 - 50 % [facility] Blood 10/10/2024 10:1 1 AM CDT 10/10/2024 10:38 AM CDT Ann Marie Villvaicencio MD LAB BLOOD ORDERABLES Tiffani l Result Performing Organization Address City/[facility]/ZIP Co de Phone Number [facility] [place] [address] * (ABNORMAL) CBC with auto differential (10/10/2024 10:11 AM CDT) WBC 8.5 3.8 - 9.9 K/cumm Comment:Testing performed by : [facility], [address] [place] [phone] Hgb 13.0 11.9 - 15.5 g/dL [facility] Comment:Testing performed by : [facility], [address] [place] [phone] Hct 37.8 35.6 - 45.5 % [facility] Comment:Testing performed by : [facility], [address] [place] [address] Plt 461(H) 150 - 400 K/cumm [facility] Comment:Testing performed by : [facility], [address] [place], [place] [phone] MPV 7.4 6.8 - 10.4 fL [facility] Comment:Testing performed by : [facility], [address] [place], [place] [phone] RBC 4.32 3.90 - 5.20 M/cumm [facility] Comment:Testing performed by : [facility], [address] [place], [place] [phone] MCV 87.6 81.3 - 96.4 fL [facility] Comment:Testing performed by : [facility], [address] [place], [place] [phone] MCH 30.0 27.1 - 33.3 pg [facility] Comment:Testing performed by : [facility], [address] [place] [address] MCHC 34.3 32.3 - 35.7 g/dL [facility] Comment:Testing performed by : [facility], [address] [place] [address] RDW CV 12.9 11.1 - 14.9 % [facility] Comment:Testing performed by : [facility], [address] [place] [address] NRBC abs 0.00 0.00 - 0.01 K/cumm [facility] Comment:Testing performed by : [facility], [address] [place] [address] Blood 10/10/2024 10:1 1 AM CDT 10/10/2024 10:35 AM CDT us Ann Marie Villavicencio MD LAB BLOOD ORDERABLES Tiffani l Result [facility] Department [place] [address] * (ABNORMAL) Farheen-Whitney virus (EBV) antibody panel Blood (10/10/2024 10:11 AM CDT) Pathologist [facility] EBV nuclear Ab Positive(A) Negative Comment:Indicates the presen ce of detectable IgG antibody to EBV Nuclear Antigen. EBV VCA IgG Positive(A) Negative [facility] Comment:Indicates the presen ce of antibody; 90% of the adult population will have been infected with EBV sometime in the past. EBV VCA IgM Negative Negative [facility] Comment:No detectable IgM an tibody to EBV-VCA. A negative result indicates no current infection with EBV. If clinical suspicion of acute EBV infection is present, testing should be repeated after one week. EBV interp Past Infection [facility] Blood 10/10/2024 10:1 1 AM CDT 10/10/2024 11:18 AM CDT Ann Marie Villavicencio MD LAB MICROBIOLOGY - GENERA L ORDERABLES Final Result [facility] Department [place] [address] * (ABNORMAL) Erythrocyte sedimentation rate (10/10/2024 10:11 AM CDT) [facility] Erythrocyte sedimentation rate 23(H) 1 - 20 mm/hr Blood 10/10/2024 10:1 1 AM CDT 10/10/2024 11:19 AM CDT Ann Marie Villavicencio MD LAB BLOOD ORDERABLES Tiffani l Result [facility] [place] [address] * CRP (acute phase) (10/10/2024 10:11 AM CDT) [facility] CRP 7.0 <=10.0 mg/L Blood 10/10/2024 10:1 1 AM CDT 10/10/2024 11:04 AM CDT Ann Marie Villavicencio MD LAB BLOOD ORDERABLES Tiffani l Result [facility] [place] [address] * Ferritin (10/10/2024 10:11 AM CDT) Pathologist [facility] Ferritin 64 13 - 150 ng/mL Blood 10/10/2024 10:1 1 AM CDT 10/10/2024 10:38 AM CDT Ann Marie Villavicencio MD LAB BLOOD ORDERABLES Tiffani l Result Performing Organization Address [facility] Co de Phone Number [facility] [place] [address] * Comprehensive metabolic panel (10/10/2024 10:11 AM CDT) [facility] Sodium 140 135 - 145 mmol/L Potassium, pl 3.8 3.3 - 4.9 mmol/L [facility] Chloride 105 97 - 110 mmol/L [facility] CO2 26 22 - 32 mmol/L [facility] Anion gap 9 2 - 15 mmol/L [facility] BUN 11 6 - 25 mg/dL [facility] Creatinine 0.71 0.60 - 1.10 mg/dL [facility] Glucose 82 70 - 199 mg/dL [facility] Comment: Interpretive Data Fasting glucose >/= 126 mg/dl is diagnostic for diabetes. Fasting is defined as no caloric intake for at least 8 hours. Fasting glucose between 100 mg/dl to 125 mg/dl is diagnostic of prediabetes. In a patient with classic symptoms of hyperglycemia or hyperglycemic crisis, a random glucose >/= 200 mg/dl is diagnostic for diabetes. In the absence of unequivocal hyperglycemia, results should be confirmed by repeat testing. The classification and Diagnosis of Diabetes Diabetes Care 202; 46: S19-S40. Current interpretive data was last revised 2022. Calcium 8.9 8.5 - 10.3 mg/dL [facility] [place] Bilirubin, total 0.3 0.1 - 1.2 mg/dL [facility] [place]] Protein, pl 7.7 6.5 - 8.5 g/dL [facility] [place]] Albumin 4.0 3.5 - 5.0 g/dL [facility] Alk phos 57 40 - 130 Units/L [facility] ALT 15 7 - 45 Units/L [facility] AST 17 10 - 45 Units/L [facility] Blood 10/10/2024 10:1 1 AM CDT 10/10/2024 10:38 AM CDT us Ann Marie Villavicencio MD LAB BLOOD ORDERABLES Tiffani l Result [facility] Department [place] [address] * COLONOSCOPY (05/01/2022 7:59 AM CDT) Anatomical Region Laterality Modality Other Narrative Procedure Note Mehnaz Childs MD - 05/01/2022 7:59 AM CDT ENDOSCOPY LAB Patient Name: Teresa Saunders Procedure Date: 05/01/2022 7:59 AM Date of : 1980 Admit Type: Outpatient Age: 41 Gender: Female Attending MD: Mehnaz Childs M.D. Room: [facility] ENDOSCOPY ROOM 01 Note Status: Finalized Procedure: Colonoscopy Indications: High risk colon cancer surveillance: Personalhistory of colonic polyps, Last colonoscopy: September 2016 Providers: Mehnaz Childs M.D. Referring MD: Josh Lopez M.D. Medicines: Monitored Anesthesia Care Complications: No immediate complications. Estimated blood loss: Minimal. Estimated Blood Loss: Estimated blood loss was minimal. Procedure: Pre-Anesthesia Assessment: - Immediately prior to administration ofmedications, the patient was re-assessed for adequacy to receive sedatives. The benefits, risks and alternatives of theprocedure and sedation were discussed and informed consentwas obtained. All questions were answered. Please referto the signed informed consent document in the medical record. The scope was passed under direct vision.The [id number] was introduced through the anusand advanced to the cecum, identified by appendiceal orifice and ileocecal valve. The colonoscopy was performed without difficulty. The patient tolerated the procedure well. The quality of the bowel preparation was evaluated using the BBPS (BostonBowel Preparation Scale) with scores of: Right Colon = 3, Transverse Colon = 3 and Left Colon = 3 (entiremucosa seen well with no residual staining, smallfragments of stool or opaque liquid). The total BBPS score equals 9. Findings: The digital rectal exam was normal. An 8 mm polyp was found in the cecum. The polyp was flat. The polypwas removed with a cold snare. Resection and retrieval were complete. A 3 mm polyp was found in the ascending colon. The polyp was sessile. The polyp was removed with a cold snare. Resection and retrieval were complete. The retroflexed view of the distal rectum and anal verge was normaland showed no anal or rectal abnormalities. Impression: - One 8 mm polyp in the cecum, removed with a cold snare. Resected and retrieved. - One 3 mm polyp in the ascending colon, removedwith a cold snare. Resected and retrieved. - The distal rectum and anal verge are normal on retroflexion view. Recommendation: - Follow-up biopsy results. Please call the officeif you do not receive results in 2 weeks. - Patient has a contact number available for emergencies. The signs and symptoms of potential delayed complications were discussed with thepatient. Return to normal activities tomorrow. Written discharge instructions were provided to thepatient. - Contact Information: During normal business hours - [facility] [place] Coordinator: [phone] After hours, evening, nights, weekends and holidays- Please call the hospital coal briquette machine operator at and ask for the GI fellow construction carpenters helper. Electronically by Dr Mehnaz Childs Mehnaz Childs M.D. 05/01/2022 8:25:36 AM Number of Addenda: 0 Note Initiated On: 05/01/2022 7:59 AM Mehnaz Childs MD ENDOSCOPY PROCEDURES Final Result from Last 3 Months or Most Recently Relevant to Health Maintenance Insurance [employer] [place] Advance Directives For more information, please contact: [phone] * Full Code (Latest Code Status on File) Date Activated Date Inactivated Comments 05/01/2022 7:06 AM 05/01/2022 1:01 PM Care Teams Turf Keeper Relationship Specialty Start Date End Date Josh Lopez MD PCP - General 09/11/16 Marquis Tesfaye MD 09/11/16
--- OUTSIDE RECORDS SUMMARY | 2024-10-17 07:18 | XMS_ITS | Encounter Summary ---
Author Organization [facility] Address [address] [place] [address] Phone Care Team Providers Care Ampoule Filler Name Role Phone Josh Lopez MD Primary Care Provider [phone] Marquis Tesfaye MD Unavailable [phone] Encounter Details Date Type Department Care Team (Late st Contact Info) Description 10/14/2024 Orders Only [facility] Hematology [address] [place] [id number] Pat Butler Social History Tobacco Use Types Packs/Day Years Used Date Smoking Tobacco: Former Cigarettes Passive Smoke Exposure: Never Smokeless Tobacco: Never Alcohol Use Standard Drinks/Week Comments No 0 [...] on file 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
--- OUTSIDE RECORDS SUMMARY | 2024-10-17 07:18 | XMS_ITS | Clinical Summary ---
Author Organization [facility] Address [address] [place] [address] Care Team Providers Care Burnishing Machine Operator Name Role Phone Josh Lopez MD Primary Care Provider [phone] [facility]non-owned Affiliates and Associated Physician Practices is amultiple site organization consisting of ambulatory clinics and hospital sitesin [place], [place], [place] and [place]. This disclosure is being madepursuant to the Care Everywhere program and may not contain all information available regarding this patient. Last updated 18.[facility] Allergies No known active allergies Medications * Be aware that medications may not be up to date on this document. Alwaysverify current medications with the patient. Medication Sig Dispensed Refills Start Date End Date Status Saccharomyces boulardii (FLORASTOR PO) Active LORATADINE PO Active fluticasone furoate (FLONASE SENSIMIST/VERAMYST) 27.5 MCG/SPRAY nasal spray [place] 1 [place] into each nostril 2 times daily Active LANSOPRAZOLE PO Active FLUoxetine (PROZAC) 10 MG capsule Take 10 mg by mouth once daily Active clonazePAM (KLONOPIN) 0.5 MG tablet Take 0.5 mg by mouth 2 times daily Active levonorgestrel-ethiny l estradiol (SRONYX) 0.1-20 MG-MCG tablet Take 1 tablet by mouth once daily Active predniSONE (DELTASONE) 20 MG tabletIndications:Acu te sinusitis, recurrence not specified, unspecified location Take 1 tablet by mouth 2 times daily 14 tablet 06/13/2018 Active albuterol HFA (VENTOLIN HFA) 108 (90 BASE) MCG/ACT inhalerIndications:Ac cale bronchitis, unspecified organism Inhale 2 puffs by mouth every 4 hours as needed for Wheezing or Cough 1 Inhaler 06/13/2018 Active Active Problems No known active problems Social History Tobacco Use Types Packs/Day Years Used Date Smoking Tobacco: Never Smokeless Tobacco: Never Sex and Gender Information Value Date Recorded Sex Assigned at Not on file Gender Identity Not on file Sexual Orientation Not on file Last Filed Vital Signs Vital Sign Reading Time Taken Comments Blood Pressure 110/70 06/13/2018 4:24 PM ASSEMBLER [employer]QUIPMENT Pulse 72 06/13/2018 4:24 PM [employer]SEM[employer] Temperature 36.8 C (98.3 F) 06/13/2018 4:24 PM ASSEM[employer]MENT Respiratory Rate 16 06/13/2018 4:24 PM ASSEMBLER [employer]QU[employer]MENT Oxygen Saturation 98% 06/13/2018 4:24 PM ASSEMBLER [employer]QU[employer]MENT Inhaled Oxygen Concentration - - Weight 52.6 kg (116 lb) 06/13/2018 4:24 PM ASSEM[employer] Height 157.5 cm (5' 2 ) 06/13/2018 4:24 PM ASSEMBLER [employer]MENT Body Mass Index 21.22 06/13/2018 4:24 PM ASSEMBLER [employer]MENT Plan of Treatment Health Maintenance Due Date Last Done Comments COLOGUARD (AGES 45-75) - COLON CA SCREENING [address] COLONOGRAPHY - COLON CA SCREENING 1978 FIT - COLON CA SCREENING 1978 FLEX SIG - COLON CA SCREENING 1978 LIPID TESTING 1978 MAMMOGRAM 1978 PAP SMEAR 1978 HIV SCREENING 1993 HEPATITIS C SCREENING 06/22/1996 DTAP/TDAP/TD VACCINES (1 - Tdap) 1997 HEPATITIS B VACCINE (1 of 3 - 19+ 3-dose series) 1997 COVID-19 VACCINE (1 - 2023- season) 2024 INFLUENZA VACCINE (#1) 2024 , 03/31/2020, 03/26/2019, Additional history exists DEPRESSION SCREENING 07/16/2024 ZOSTER VACCINE (1 of 2) 2028 COLONOSCOPY - COLON CA SCREENING 05/01/2032 05/01/2022 Colorectal Cancer Screening 05/01/2032 HIB VACCINE Aged Out No longer eligi ble based on patient's age to complete this topic HPV VACCINE Aged Out No longer eligi ble based on patient's age to complete this topic MENINGOCOCCAL (Group B) VACCINE SHARED DECISION-MAKING Aged Out No longer eligible based on patient's age to complete this topic MENINGOCOCCAL GROUPS A/C/Y/W VACCINE Aged Out No longer eligible based on patient's age to complete this topic PNEUMOCOCCAL VACCINE Aged Out No long er eligible based on patient's age to complete this topic Care Teams Burnishing Machine Operator Relationship Specialty Start Date End Date Josh Lopez MD [address] [place] [address] PCP - General Internal Medicine 06/14/16
--- OUTSIDE RECORDS SUMMARY | 2024-10-17 07:18 | XMS_ITS | Encounter Summary ---
Author Organization [facility] Address [address] [place] [address] Phone Care Team Providers Care Dado Operator Name Role Phone Josh Lopez MD Primary Care Provider [phone] Marquis Tesfaye MD Unavailable [phone] Reason for Referral * Diagnostic Lab (Routine) - Pending Review Specialty Diagnoses / Procedures Referred By Contac t Referred To Contact Lab Diagnoses Thrombocytosis Procedures Cytogenetics Blood Cytogenetics Blood Cytogenetics Blood Ann Marie Villavicencio MD [address] [place] [address] Phone: tel: fax: Referral ID Status Reason Start Date Expiration Date V isits Requested Visits Authorized [id number] Pending Review 10/14/2024 11/13/2025 1 1 * Diagnostic Lab (Routine) - Pending Review Specialty Diagnoses / Procedures Referred By Contanna t Referred To Contact Lab Diagnoses Thrombocytosis Procedures JAK2/CALR/MPL testing cascade JAK2/CALR/MPL testing cascade Ann Marie Villavicencio MD [address] [place] [address] Phone: tel: fax: Referral ID Status Reason Start Date Expiration Date V isits Requested Visits Authorized [id number] Pending Review 10/10/2024 11/09/2025 1 1 Reason for Visit * Reason Comments Thrombocytosis * Oncology (Routine) - Authorized Specialty Diagnoses / Procedures Referred By Contanna t Referred To Contact Hematology Diagnoses Elevated platelet count oJsh Lopez MD [address] [place] [address] Phone: tel: fax: [facility] H[facility] [address] [facility] 8th [place] [address] [place] [address] Phone: tel: fax: Referral ID Status Reason Start Date Expiration Date Visits Requested Visits Authorized [id number] Authorized Specialty Services Required 4 07/15/2025 99 99 Encounter Details Date Type Department Care Team (Latest Contact Info) Description 10/10/2024 9:00 AM CDT Office Visit [facility] Hematology [address] [facility] Floor [address] [place] [phone] Ann Marie Villavicencio MD [address] [place] [address] Thrombocytosis (Primary Dx); Elevated platelet count Social History Tobacco Use Types Packs/Day Years [...] on file 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 Gender Identity Not on file Sexual Orientation Not on file documented as of this encounter Last Filed Vital Signs Vital Sign Reading Time Taken Comments Blood Pressure 121/74 10/10/2024 9:01 AM CDT Pulse 76 10/10/2024 9:01 AM CDT Temperature 36.6 C (97.8 F) 10/10/2024 9:01 AM CDT Respiratory Rate - - Oxygen Saturation 99% 10/10/2024 9:01 AM CDT Inhaled Oxygen Concentration - - Weight 61.5 kg (135 lb 9.6 oz) 10/10/2024 9:01 A M CDT Height 158 cm (5' 2.2 ) 10/10/2024 9:01 AM CDT Body Mass Index 24.64 10/10/2024 9:01 AM CDT documented in this encounter Progress Notes * Ann Marie Villavicencio MD - 10/10/2024 9:00 AM CDT Hematology Clinic Consult Note: Date of Visit: 10/10/2024 Referring Physician: Josh Lopez MD [address] [place] [address] History of Present Illness: Teresa Saunders is a 44 y.o. female with dayana of asthma, GERD, mild NADIA, and endometriosis who was referred for evaluation of thrombocytosis. She has had mild thrombocytosis noted as far back a 03/2022. Platelets since 06/2023 have ranged from 409-435. She had routine lab monitoring as below. 05/14/21: platelets 377, WBC 5.3, hgb 13.1 04/06/22: platelets 426, hgb 13.7, WBC 9.3 07/10/22: platelets 385, WBC 7.3, hgb 12.8 06/16/23: platelets 435, WBC 6.4, hgb 12.6 08/18/23: platelets 409, WBC 6.5, hgb 12.7, 11/23/23: platelets 420, WBC 8, hgb 12.7 05/10/24: platelets 442, WBC 7, hgb 13.4, T chol 232, HDL 48, TG 174, and LDL 153, normal LFTs 08/11/24: platelets 494, WBC 8.6, hgb 14 She describes more fatigue which has been present for several >3 years despite adequate sleep(9-10 hrs), however, does not limit her day to day activities. She also notes recurrent headaches w/ aura which have decreased in frequency since starting Nurtec now occurring a 3x per month. She additionally reports intermittent numbness and tingling in the hands and feet present which have been present for the past 1 year, mild pruritus involving the BUE. She describes intermittent right sided abdominal pain and early satiety cannot eat more than 2 meals a day(which is unchanged for several years), 5-10 pound weight loss unintentional over the last 3-4 months. She also describes intermittent BRBPR iso hemorrhoids(has colonoscopies q 5 years, no dietary limitations). She does report 1-2x sinusinfections per year requiring oral steroids. She has been on continuous OCPs for the past 5-6 yearsw/o menstrual cycles, previously heavy bleeding and painful. However, she denies ns, fevers, cp, FUENTES, rash, no other overt bleeding, localizing signs of infection. Past Medical History: Past Medical History: Diagnosis Date Asthma Asthma HX OTHER MEDICAL Headache, migraine Hyperlipidemia Hyperlipidemia Personal history of other diseases of the female genital tract History of endometriosis - (Added by TW Conv) Surgical History: Past Surgical History: Procedure Laterality Date LAPAROSCOPY Exploratory Laparoscopy - (Added by TW Conv) Allergies: No Known Allergies Family History: Family History Problem Relation Age of Onset Coronary artery disease Mother Coronary artery disease; Hyperlipidemia Mother Hyperlipidemia; Migraines Mother Family history of migraine headaches - (Added by TW Conv) Father: dayana of prostate cancer, ddx at age 60s Sister: ddx skin cancer(unknown type) Maternal Grandfather: bladder cancer and Kristen Cell Maternal Grandmother: dayana of CLL and SCLC No family dayana of bleeding diathesis or thrombosis Social History: She lives in [place], [place] and works as a market specialist, denies heavy EtOH consumption, remote dayana of smoking in college, denies recreational drug use Medications: Current Outpatient Medications Medication Sig Dispense Refill FLUoxetine (PROzac) 20 mg capsule lansoprazole (PREVACID) 30 mg capsule Take by mouth levonorgestreL-ethinyl estrad (LUTERA) 0.1-20 mg-mcg per tablet loratadine (CLARITIN) 10 mg tablet ondansetron (ZOFRAN) 4 mg tablet Take 1-2 tablets by mouth 30 minutes prior to drinking colonoscopyprep. May repeat with second dose. (Patient not taking: Reported on 10/10/2024) 4 tablet 0 rimegepant (Nurtec ODT) tablet,disintegrating Take 1 tablet (75 mg total) by mouth every other day (Patient not taking: Reported on 10/10/2024) 16 tablet 11 Saccharomyces boulardii (FLORASTOR) 250 mg capsule Take by mouth (Patient not taking: Reported on 10/11/2022) No current facility-administered medications for this visit. Physical Exam: Vitals BP 121/74 (BP Location: Right arm) Pulse 76 Temp 36.6 ??C (97.8 ??F) (Transdermal) Ht 158 cm (5' 2.2 ) Wt 61.5 kg (135 lb 9.6 oz) SpO2 99% BMI 24.64 kg/m?? General: well appearing, NAD HENT: NCAT, MMM Eyes: sclera anicteric, non-injected CV: normal s1/s2, systolic murmur present Pulm: CTAB, NLB on RA GI: soft, NTND, no HSM Lymph: no peripheral LAD Extremities: no cyanosis or edema Skin: no overt rashes or lesions Neuro: AAO, fluent speech, NFD Review of Systems: negative except as mentioned in HPI Labs/Radiology: Lab Results Component Value Date WBC 8.5 10/10/2024 HGB 13.0 10/10/2024 HCT 37.8 10/10/2024 LABPLAT 461 (H) 10/10/2024 MPV 7.4 10/10/2024 RBC 4.32 10/10/2024 MCV 87.6 10/10/2024 MCH 30.0 10/10/2024 MCHC 34.3 10/10/2024 RDWCV 12.9 10/10/2024 NRBCABS 0.00 10/10/2024 NEUTROABS 5.9 10/10/2024 LYMPHSABS 2.0 10/10/2024 MONOABS 0.5 10/10/2024 EOSABS 0.1 10/10/2024 BASOSABS 0.0 10/10/2024 NEUTOPHILPCT 69.6 10/10/2024 LYMPHOPCT 23.6 10/10/2024 MONOPCT 5.3 10/10/2024 EOSPCT 1.1 10/10/2024 BASOPCT 0.4 10/10/2024 Lab Results Component Value Date SODIUM 140 10/10/2024 POTASSIUM 3.8 10/10/2024 CHLORIDE 105 10/10/2024 CO2 26 10/10/2024 ANIONGAP 9 10/10/2024 BUNSER 11 10/10/2024 CREATININE 0.71 10/10/2024 GLUCOSE 82 10/10/2024 CALCIUM 8.9 10/10/2024 BILITOT 0.3 10/10/2024 PROT 7.7 10/10/2024 ALBUMIN 4.0 10/10/2024 ALKPHOS 57 10/10/2024 ALT 15 10/10/2024 AST 17 10/10/2024 Lab Results Component Value Date IRON 93 10/10/2024 TIBC 392 10/10/2024 TRANSFERSAT 24 10/10/2024 FERRITIN 64 10/10/2024 Assessment: A 44 y.o. female with dayana of asthma, GERD, mild NADIA, and endometriosis who was referred for evaluation of thrombocytosis. She has had mild thrombocytosis noted as far back a 03/2022. Platelets have been in the 400-500 range and appear to be increasing as of the last two sets of labs. Etiology of thrombocytosis is unknown, she has had intermittent BRBPR iso hemorrhoids and does haveprior dayana of heavy menstrual bleeding iso endometriosis however has been on continuous OCPs for thepast 5-6 years and is amenorrheic. Will obtain iron studies as below no prior iron studies as above, she does describe steroid use ~ 1-2 per year iso sinus infections however no other obvious medications. She also describes early satiety(which is unchanged over the past several years) and new RUQ pain. Will also obtain CRP and ESR and work up as below. Plan: Thrombocytosis -- CBC, CMP, iron studies, ESR, CRP, EBV -- RTC in 1 month Addendum: Mild elevation in ESR, CRP wnl, iron studies w/o obvious deficiency, and EBV c/w prior infection, will obtain molecular testing and abdominal US documented in this encounter Miscellaneous Notes * Addendum Note - Pat Moy - 10/10/2024 9:00 AM CDTAddended by: PAT MOY on: 10/14/2024 08:46 AM Modules accepted: Orders * Addendum Note - Callie Tompkins RN - 10/10/2024 9:00 AM CDTAddended by: CALLIE TOMPKINS on: 10/14/2024 08:51 AM Modules accepted: Orders * Addendum Note - Callie Tompkins RN - 10/10/2024 9:00 AM CDTAddended by: CALLIE TOMPKINS on: 10/14/2024 09:00 AM Modules accepted: Orders * Addendum Note - Juan Staton - 10/10/2024 9:00 AM CDTAddended by: JUAN STATON on: 10/16/2024 02:28 PM Modules accepted: Orders documented in this encounter Plan of Treatment Pending Results Name Type Priority Associated Diagnoses Date /Time JAK2/CALR/MPL testing cascade Lab Routine Thrombocytosis 10/16/2024 2:39 PM CDT Scheduled Orders Name Type Priority Associated Diagnoses Orde r Schedule JAK2/CALR/MPL testing cascade Lab Routine Thrombocytosis Expected: 10/29/2024, Expires: 10/10/2025 Cytogenetics Blood Lab Routine Thrombocytosis Expected: 10/16/2024, Expires: 10/14/2025 Cytogenetics Specimen Tracking Blood Lab Routine Thrombocytosis Expected: 10/16/2024, Expires: 10/14/2025 documented as of this encounter Results * (ABNORMAL) CBC with auto differential (10/16/2024 2:39 PM CDT) [facility] WBC 7.91 3.80 - 9.90 K/cumm Hgb 12.4 11.9 - 15.5 g/dL [facility] ([facility] Hct 36.1 35.6 - 45.5 % [facility] ([facility] Plt 397 150 - 400 K/cumm [facility] ([facility]) MPV 8.6(L) 9.1 - 12.3 fL [facility] RBC 4.09 3.90 - 5.20 M/cumm [facility] ([facility] MCV 88.3 81.3 - 96.4 fL [facility] MCH 30.3 27.1 - 33.3 pg [facility] MCHC 34.3 32.3 - 35.7 g/dL [facility] RDW CV 12.4 11.1 - 14.9 % [facility] RDW SD 39.8 35.7 - 48.1 fL [facility] NRBC abs 0.00 0.00 - 0.01 K/cumm [facility] Blood 10/16/2024 2:39 PM CDT 10/16/2024 2:45 PM CDT us Ann Marie Villavicencio MD LAB BLOOD ORDERABLES Tiffani palumbo Result [facility] 1 [facility] Department [place] [address] * Comprehensive metabolic panel (10/16/2024 2:39 PM CDT) Sodium 137 135 - 145 mmol/L Potassium, pl 3.8 3.3 - 4.9 mmol/L [facility] Chloride 102 97 - 110 mmol/L [facility] CO2 24 22 - 32 mmol/L [facility] Anion gap 11 2 - 15 mmol/L [facility] BUN 10 6 - 25 mg/dL [facility] Creatinine 0.67 0.60 - 1.10 mg/dL [facility] Glucose 82 70 - 199 mg/dL [facility] Comment: Interpretive Data Fasting glucose [...] classification and Diagnosis of Diabetes Diabetes Care 2021; 46: S19-S40. Current interpretive data was last [...] Tiffani palumbo Result [facility] ([facility] 1 [facility] Department [place] [address] * (ABNORMAL) CBC with auto differential (10/10/2024 10:11 AM CDT) WBC 8.5 3.8 - 9.9 K/cumm Comment:Testing performed by : [facility], [address] [place] [phone] Hgb 13.0 11.9 - 15.5 g/dL [facility] Comment:Testing performed by : [facility], [address] [place] [phone] Hct 37.8 35.6 - 45.5 % [facility] Comment:Testing performed by : [facility], [address] [place] [address] Plt 461(H) 150 - 400 K/cumm [facility] Comment:Testing performed by : [facility], [address] [place] [address] MPV 7.4 6.8 - 10.4 fL [facility] Comment:Testing performed by : [facility], [address] [place], [place] [phone] RBC 4.32 3.90 - 5.20 M/cumm [facility] Comment:Testing performed by : [facility], [address] [place] [address] MCV 87.6 81.3 - 96.4 fL [facility] Comment:Testing performed by : [facility], [address] [place], [place] [phone] MCH 30.0 27.1 - 33.3 pg [facility] Comment:Testing performed by : [facility], [address] [place] [address] MCHC 34.3 32.3 - 35.7 g/dL [facility] Comment:Testing performed by : [facility], [address] [place] [address] RDW CV 12.9 11.1 - 14.9 % [facility] Comment:Testing performed by : [facility], [address] [place] [address] NRBC abs 0.00 0.00 - 0.01 K/cumm [facility] Comment:Testing performed by : [facility], [address] [place] [address] Blood 10/10/2024 10:1 1 AM CDT 10/10/2024 10:35 AM CDT us Ann Marie Villavicencio MD LAB BLOOD ORDERABLES Tiffani palumbo Result [facility] Department [place] [address] * Comprehensive metabolic panel (10/10/2024 10:11 AM CDT) Sodium 140 135 - 145 mmol/L Potassium, pl 3.8 3.3 - 4.9 mmol/L [facility] Chloride 105 97 - 110 mmol/L [facility] CO2 26 22 - 32 mmol/L [facility] Anion gap 9 2 - 15 mmol/L [facility] BUN 11 6 - 25 mg/dL [facility] Creatinine 0.71 0.60 - 1.10 mg/dL [facility] Glucose 82 70 - 199 mg/dL [facility] Comment: Interpretive Data Fasting glucose >/= 126 [...] classification and Diagnosis of Diabetes Diabetes Care 2021; 46: S19-S40. Current interpretive data was last revised 2022. Calcium 8.9 8.5 - 10.3 mg/dL [facility] Bilirubin, total 0.3 0.1 - 1.2 mg/dL [facility] Protein, pl 7.7 6.5 - 8.5 g/dL [facility] Albumin 4.0 3.5 - 5.0 g/dL [facility] Alk phos 57 40 - 130 Units/L [facility] ALT 15 7 - 45 Units/L [facility] AST 17 10 - 45 Units/L [facility] Blood 10/10/2024 10:1 1 AM CDT 10/10/2024 10:38 AM CDT us Ann Marie Villavicencio MD LAB BLOOD ORDERABLES Tiffani deepali Result [facility] Department [place] [address] * Iron profile w/ IBC (10/10/2024 10:11 AM CDT) [facility] Iron 93 35 - 145 mcg/dL TIBC 392 250 - 400 mcg/dL [facility] Transferrin saturation 24 20 - 50 % [facility] Blood 10/10/2024 10:1 1 AM CDT 10/10/2024 10:38 AM CDT Ann Marie Villavicencio MD LAB BLOOD ORDERABLES Tiffani l Result Performing Organization Address City/[facility] Co de Phone Number [facility] Department [place] [address] * Ferritin (10/10/2024 10:11 AM CDT) [facility] Ferritin 64 13 - 150 ng/mL Blood 10/10/2024 10:1 1 AM CDT 10/10/2024 10:38 AM CDT Ann Marie Villavicencio MD LAB BLOOD ORDERABLES Tiffani l Result Performing Organization Address [facility] de Phone Number [facility] [place] [address] * (ABNORMAL) Farheen-Whitney virus (EBV) antibody panel Blood (10/10/2024 10:11 AM CDT) [facility] EBV nuclear Ab Positive(A) Negative Comment:Indicates the presen ce of detectable IgG antibody to EBV Nuclear Antigen. EBV VCA IgG Positive(A) Negative [facility] Comment:Indicates the presen ce of antibody; 90% of the adult population will have been infected with EBV sometime in the past. EBV VCA IgM Negative Negative [facility] Comment:No detectable IgM an tibody to EBV-VCA. A negative result indicates no current infection with EBV. If clinical suspicion of acute EBV infection is present, testing should be repeated after one week. EBV interp Past Infection [facility] Blood 10/10/2024 10:1 1 AM CDT 10/10/2024 11:18 AM CDT Ann Marie Villavicencio MD LAB MICROBIOLOGY - GENERA L ORDERABLES Final Result Performing Organization Address [facility] Co de Phone Number [facility] [place] [address] * (ABNORMAL) Erythrocyte sedimentation rate (10/10/2024 10:11 AM CDT) Erythrocyte sedimentation rate 23(H) 1 - 20 mm/hr Blood 10/10/2024 10:1 1 AM CDT 10/10/2024 11:19 AM CDT Ann Marie Villavicencio MD LAB BLOOD ORDERABLES Tiffani l Result Performing Organization Address [facility] Co de Phone Number [facility] [place] [address] * CRP (acute phase) (10/10/2024 10:11 AM CDT) CRP 7.0 <=10.0 mg/L Blood 10/10/2024 10:1 1 AM CDT 10/10/2024 11:04 AM CDT Ann Marie Villavicencio MD LAB BLOOD ORDERABLES Tiffani l Result Performing Organization Address [facility] de Phone Number [facility] [place] [address] documented in this encounter Visit Diagnoses Diagnosis Thrombocytosis- Primary Essential thrombocythemia Elevated platelet count Essential thrombocythemia documented in this encounter Discontinued Medications Medication Sig Discontinue Reason Start Date End Da te predniSONE (DELTASONE) 10 mg tablet Take 5 tablets (50mg) by mouth on day one, then 4 tablets (40mg) on day 2 and continue to decrease by 1 tablet (10mg) daily until finished 07/18/2022 10/10/2024 documented as of this encounter Orders Outpatient Referral Count Last Ordered Date Fir st Ordered Date AMB REFERRAL TO HEMATOLOGY 1 10/10/2024 Appointment Requests Count Last Ordered Date Fi rst Ordered Date ONCBCN CLINIC APPOINTMENT REQUEST 1 025 ONCBCN LAB APPOINTMENT 1 10/10/2024 documented in this encounter Care Teams Dado Operator Relationship Specialty Start Date End Date Josh Lopez MD PCP - General 09/11/16 Marquis Tesfaye MD 09/11/16 documented as of this encounter
--- OUTSIDE RECORDS SUMMARY | 2024-10-17 07:18 | XMS_ITS | Encounter Summary ---
Author Organization [facility] Address [address] [place] [address] Care Team Providers Care Fire Prevention Specialist Name Role Phone Josh Lopez MD Primary Care Provider [phone] Marquis Tesfaye MD Unavailable [phone] Reason for Visit * Diagnostic Lab (Routine) - Pending Review Specialty Diagnoses / Procedures Referred By Contac t Referred To Contact Lab Diagnoses Thrombocytosis Procedures JAK2/CALR/MPL testing cascade JAK2/CALR/MPL testing cascade Ann Marie Villavicencio MD [address] [place] [address] Phone: tel: fax: Referral ID Status Reason Start Date Expiration Date V isits Requested Visits Authorized [id number] Pending Review 10/10/2024 11/09/2025 1 1 Encounter Details Date Type Department Care Team (Late st Contact Info) Description 10/16/2024 2:25 PM CDT Lab [address] [phone] Thrombocytosis Social History Tobacco Use Types Packs/Day Years [...] on file 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 Gender Identity Not on file Sexual Orientation Not on file documented as of this encounter Plan of Treatment Pending Results Name Type Priority Associated Diagnoses Date /Time JAK2/CALR/MPL testing cascade Lab Routine Thrombocytosis 10/16/2024 2:39 PM CDT BLOOD MISC TO [place] Lab Routine 2024 2:39 PM CDT documented as of this encounter Procedures Procedure Name Priority Date/Time Associated Diagnosis Comments BLOOD MISC TO [place] Routine 10/16/2024 2: 39 PM CDT EGFR Routine 10/16/2024 2:39 PM CDT Thrombocytosis DIFFERENTIAL AUTO Routine 10/16/2024 2:3 9 PM CDT Thrombocytosis CBC WITH AUTO DIFFERENTIAL Routine 10/16/2024 2:39 PM CDT Thrombocytosis COMPREHENSIVE METABOLIC PANEL Routine 10/16/2024 2:39 PM CDT Thrombocytosis documented in this encounter Results * eGFR (10/16/2024 2:39 PM CDT) [...] MD LAB BLOOD ORDERABLES Tiffani deepali Result [facility] 1 [facility] Department [place] [address] * Differential, auto (10/16/2024 2:39 PM CDT) Neutrophil abs 4.55 1.50 - 6.50 K/cumm Imm gran abs 0.03 0.00 - 0.10 K/cumm [facility] ([place] Lymphocyte abs 2.52 0.80 - 3.30 K/cumm [facility] ([place]) Monocyte abs 0.65 0.20 - 0.80 K/cumm [facility] ([place] Eosinophil abs 0.11 0.00 - 0.50 K/cumm [facility] ([place]) Basophil abs 0.05 0.00 - 0.10 K/cumm [facility] ([facility]) Neutrophil pct 57.5 % [facility] ([place]) Comment: Interpretive Data Percent cell count reference [...] Tiffani palumbo Result [facility] ([facility] 1 [facility] Department [place] [address] * Comprehensive metabolic panel (10/16/2024 2:39 PM [...] MD LAB BLOOD ORDERABLES Tiffani l Result [facility] ([facility] 1 [facility] Department [place] [address] * (ABNORMAL) CBC with auto differential (10/16/2024 [...] RDW SD 39.8 35.7 - 48.1 fL [facility] ([facility]) NRBC abs 0.00 0.00 - 0.01 K/cumm [facility] ([facility]) Blood 10/16/2024 2:39 PM CDT 10/16/2024 2:45 PM CDT us Ann Marie Villavicencio MD LAB BLOOD ORDERABLES Tiffani l Result [facility] ([place]) 1 [facility] Department [place] [address] documented in this encounter Visit Diagnoses Diagnosis Thrombocytosis Essential thrombocythemia documented in this encounter Care Teams Fire Prevention Specialist Relationship Specialty Start Date End Date Josh Lopez MD PCP - General 09/11/16 Marquis Tesfaye MD 09/11/16 documented as of this encounter
--- OUTSIDE RECORDS SUMMARY | 2024-10-17 07:18 | XMS_ITS | Referral Summary ---
Author Organization [facility] Address [address] [facility] [place] [address] Care Team Providers Care Oncology Nurse Name Role Phone Josh Lopez MD Primary Care Provider [phone] Marquis Tesfaye MD Unavailable [phone] Encounters Date Type Department Care Team Description 10/16/2024 Results Follow-Up [facility] Hematology [address] [place] [phone] Ann Marie Villavicencio MD 10/16/2024 2:25 PM CDT Lab [address] [phone] Thrombocytosis 10/14/2024 Orders Only [facility] Hematology [address] [place] [phone] Pat Butler 10/10/2024 10:[address] [facility] - Lab Collection [address] [place] [phone] Thrombocytosis 10/10/2024 10:00 AM CDT Lab [facility] On[facility] Lab [address] [place] [phone] 10/10/2024 9:00 AM CDT Office Visit [facility] [address] [place] [phone] Ann Marie Villavicencio MD Thrombocytosis (Primary Dx); Elevated platelet count 10/03/2024 Telephone [facility] [address] [place] [phone] Vesna Stephens from Last 3 Months Allergies No known active allergies Medications lansoprazole [...] (02/19/2020): Added automatically from request for surgery [id number] Personal history of colonic polyps 02/19/2020 Overview (02/19/2020): Added automatically from request for surgery [id number] Constipation 10/26/2016 Adenoma of large intestine 06/21/2016 Altered bowel function 06/16/2015 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 Anxiety 10/07/2014 Chronic migraine with aura 10/07/2014 Headache 11/29/2013 Overview (10/20/2016): HEADACHE Asthma 11/29/2013 Overview (10/20/2016): ASTHMA NOS Hyperlipidemia 11/29/2013 Overview (10/20/2016): HYPERLIPIDEMIA NEC/NOS Immunizations Immunization Administration Dates Next Due Influenza, Quadrivalent, Spl it, Preservative Free, Intramuscular 04/27/2021,03/31/2020,03/26/2019 Influenza, Unspecified 04/07/2018 Tdap 04/27/2021 Social History Tobacco Use Types Packs/Day Years [...] on file 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 Department [place] [address] * Differential, auto (10/16/2024 2:39 PM CDT) [...] LAB BLOOD ORDERABLES Tiffani l Result [facility] ([place]) 1 [facility] Department [place] [address] * (ABNORMAL) CBC with auto differential (10/16/2024 [...] NRBC abs 0.00 0.00 - 0.01 K/cumm [facility] Blood 10/16/2024 2:39 PM CDT 10/16/2024 2:45 PM CDT us Ann Marie Villavicencio MD LAB BLOOD ORDERABLES Tiffani palumbo Result [facility] ([place]) 1 [facility] Department [place] [address] * Comprehensive metabolic panel (10/16/2024 2:39 PM CDT) Sodium 137 135 - 145 mmol/L Potassium, pl 3.8 3.3 - 4.9 mmol/L [facility] ([place]) Chloride 102 97 - 110 mmol/L [facility] ([facility]) CO2 24 22 - 32 mmol/L [facility] ([facility]) Anion gap 11 2 - 15 mmol/L [facility] ([facility]) BUN 10 6 - 25 mg/dL [facility] ([facility]) Creatinine 0.67 0.60 - 1.10 mg/dL [facility] ([facility]) Glucose 82 70 - 199 mg/dL [facility] ([facility] Comment: Interpretive Data Fasting [...] MD LAB BLOOD ORDERABLES Tiffani l Result [facility] 1 [facility] Department [place] [address] * eGFR (10/10/2024 10:11 AM CDT) eGFR [...] MD LAB BLOOD ORDERABLES Tiffani palumbo Result [facility] [place] [address] * Differential, auto (10/10/2024 10:11 AM CDT) Neutrophil abs 5.9 1.5 - 6.5 K/cumm Comment:Testing performed by : [facility], [address] [place] [phone] Lymphocyte abs 2.0 0.8 - 3.3 K/cumm CERNER SANCHEZ Comment:Testing performed by : [facility], [address] [place] [phone] Monocyte abs 0.5 0.2 - 0.8 K/cumm CERPAIGE BJ Comment:Testing performed by : [facility], [address] [place] [phone] Eosinophil abs 0.1 0.0 - 0.5 K/cumm CERPAIGE BRADFORD Comment:Testing performed by : [facility], [address] [place] [phone] Basophil abs 0.0 0.0 - 0.1 K/cumm CERNER BJ Comment:Testing performed by : [facility], [address] [place] [phone] Neutrophil pct 69.6 % CERNER BJ Comment: Interpretive Data Percent cell count reference ranges are not reported, since discordance with absolute values may lead to misinterpretation of CBC data. Current Interpretive Data was last revised on 2017. Testing performed by: [facility], [address] [place] [phone] Lymphocyte pct 23.6 % CERNER BJ Comment: Interpretive Data Percent cell count reference ranges are not reported, since discordance with absolute values may lead to misinterpretation of CBC data. Current Interpretive Data was last revised on 2017. Testing performed by: [facility], [address] [place] [phone] Monocyte pct 5.3 % [facility]LE[facility] BRADFORD Comment: Interpretive Data Percent cell count reference ranges are not reported, since discordance with absolute values may lead to misinterpretation of CBC data. Current Interpretive Data was last revised on 2017. Testing performed by: [facility], [address] [place] [phone] Eosinophil pct 1.1 % MILE[facility] BRADFORD Comment: Interpretive Data Percent cell count reference ranges are not reported, since discordance with absolute values may lead to misinterpretation of CBC data. Current Interpretive Data was last revised on 2017. Testing performed by: [facility], [address] [place] [phone] Basophil pct 0.4 % MILE[facility] BRADFORD Comment: Interpretive Data Percent cell count reference ranges are not reported, since discordance with absolute values may lead to misinterpretation of CBC data. Current Interpretive Data was last revised on 2017. Testing performed by: [facility], [address] [place] [phone] Blood 10/10/2024 10:1 1 AM CDT 10/10/2024 10:35 AM CDT Ann Marie Villavicencio MD LAB BLOOD ORDERABLES Tiffani l Result [facility] Department [place] [address] * Iron profile w/ IBC (10/10/2024 10:11 AM CDT) Iron 93 35 - 145 mcg/dL TIBC 392 250 - 400 mcg/dL [facility] Transferrin saturation 24 20 - 50 % [facility] Blood 10/10/2024 10:1 1 AM CDT 10/10/2024 10:38 AM CDT Ann Marie Villavicencio MD LAB BLOOD ORDERABLES Tiffani l Result [facility] Department [place] [address] * (ABNORMAL) CBC with auto differential (10/10/2024 10:11 AM CDT) WBC 8.5 3.8 - 9.9 K/cumm Comment:Testing performed by : [facility], [address] [place] [address] Hgb 13.0 11.9 - 15.5 g/dL CERNER BJ Comment:Testing performed by : [facility], [address] [place] [address] Hct 37.8 35.6 - 45.5 % CERNER BJ Comment:Testing performed by : [facility], [address] [place] [address] Plt 461(H) 150 - 400 K/cumm CERNER BJ Comment:Testing performed by : [facility], [address] [place] [address] MPV 7.4 6.8 - 10.4 fL CERNER BJ Comment:Testing performed by : [facility], [address] [place] [address] RBC 4.32 3.90 - 5.20 M/cumm CERNER BJ Comment:Testing performed by : [facility], [address] [place] [address] MCV 87.6 81.3 - 96.4 fL CERNER BJ Comment:Testing performed by : [facility], [address] [place] [address] MCH 30.0 27.1 - 33.3 pg CERNER BJ Comment:Testing performed by : [facility], [address] [place] [address] MCHC 34.3 32.3 - 35.7 g/dL CERNER BJ Comment:Testing performed by : [facility], [address] [place] [address] RDW CV 12.9 11.1 - 14.9 % CERNER BJ Comment:Testing performed by : [facility], [address] [place] [phone] NRBC abs 0.00 0.00 - 0.01 K/cumm [facility] Comment:Testing performed by : [facility], [address] [place] [phone] Blood 10/10/2024 10:1 1 AM CDT 10/10/2024 10:35 AM CDT Ann Marie Villavicencio MD LAB BLOOD ORDERABLES Tiffani l Result Performing Organization Address City/[facility]/ZIP Co de Phone Number [facility] [place] [employer] [place] [address] * (ABNORMAL) Syed-Whitney virus (EBV) antibody panel Blood (10/10/2024 10:11 AM CDT) Pathologist [facility] EBV nuclear Ab Positive(A) Negative Comment:Indicates the presen ce of detectable IgG antibody to EBV Nuclear Antigen. EBV VCA IgG Positive(A) Negative [facility] Comment:Indicates the presen ce of antibody; 90% of the adult population will have been infected with EBV sometime in the past. EBV VCA IgM Negative Negative [facility] Comment:No detectable IgM an tibody to EBV-VCA. A negative result indicates no current infection with EBV. If clinical suspicion of acute EBV infection is present, testing should be repeated after one week. EBV interp Past Infection [facility] Blood 10/10/2024 10:1 1 AM CDT 10/10/2024 11:18 AM CDT Ann Marie Villavicencio MD LAB MICROBIOLOGY - GENERA L ORDERABLES Final Result Performing Organization Address City/[facility]/ZIP Co de Phone Number [facility] [place] [employer] [place] [address] * (ABNORMAL) Erythrocyte sedimentation rate (10/10/2024 10:11 AM CDT) Erythrocyte sedimentation rate 23(H) 1 - 20 mm/hr Blood 10/10/2024 10:1 1 AM CDT 10/10/2024 11:19 AM CDT Ann Marie Villavicencio MD LAB BLOOD ORDERABLES Tiffani l Result Performing Organization Address [facility] Co de Phone Number [facility] [place] [address] * CRP (acute phase) (10/10/2024 10:11 AM CDT) Pathologist [facility] CRP 7.0 <=10.0 mg/L Blood 10/10/2024 10:1 1 AM CDT 10/10/2024 11:04 AM CDT Ann Marie Villavicencio MD LAB BLOOD ORDERABLES Tiffani l Result Performing Organization Address [facility] Co de Phone Number [facility] [place] [employer] [place] [address] * Ferritin (10/10/2024 10:11 AM CDT) Pathologist [facility] Ferritin 64 13 - 150 ng/mL Blood 10/10/2024 10:1 1 AM CDT 10/10/2024 10:38 AM CDT Ann Marie Villavicencio MD LAB BLOOD ORDERABLES Tiffani l Result Performing Organization Address City/[facility] Co de Phone Number [facility] [place] [employer] [place] [address] * Comprehensive metabolic panel (10/10/2024 10:11 AM CDT) Pathologist [facility] Sodium 140 135 - 145 mmol/L Potassium, pl 3.8 3.3 - 4.9 mmol/L [facility] Chloride 105 97 - 110 mmol/L [facility] CO2 26 22 - 32 mmol/L [facility] Anion gap 9 2 - 15 mmol/L [facility] BUN 11 6 - 25 mg/dL [facility] Creatinine 0.71 0.60 - 1.10 mg/dL [facility] Glucose 82 70 - 199 mg/dL [facility] Comment: Interpretive Data Fasting glucose >/= 126 [...] 2022. Calcium 8.9 8.5 - 10.3 mg/dL [facility] Bilirubin, total 0.3 0.1 - 1.2 mg/dL [facility] Protein, pl 7.7 6.5 - 8.5 g/dL [facility] Albumin 4.0 3.5 - 5.0 g/dL [facility] Alk phos 57 40 - 130 Units/L [facility] ALT 15 7 - 45 Units/L [facility] AST 17 10 - 45 Units/L [facility] Blood 10/10/2024 10:1 1 AM CDT 10/10/2024 10:38 AM CDT Ann Marie Villavicencio MD LAB BLOOD ORDERABLES Tiffani l Result [facility] Department [place] [address] * COLONOSCOPY (05/01/2022 7:59 AM CDT) Anatomical Region Laterality Modality Other Narrative Procedure Note Mehnaz Childs MD - 05/01/2022 7:59 AM CDT ENDOSCOPY LAB Patient Name: Teresa Saunders Procedure Date: 05/01/2022 7:59 AM Date of : 1980 Admit Type: Outpatient Age: 41 Gender: Female Attending MD: Mehnaz Childs M.D. Room: [facility] ENDOSCOPY ROOM 01 Note Status: Finalized [...] The scope was passed under direct vision.The [id number] was introduced through the anusand advanced to [...] During normal business hours - Please call [facility] Coordinator: [phone] After hours, evening, nights, weekends and holidays- Please call the hospital subsurface augmentee operator at and ask for the GI fellow national sales trainer. Electronically by Dr Mehnaz Childs Mehnaz Childs M.D. 05/01/2022 8:25:36 AM Number of Addenda: 0 Note Initiated On: 05/01/2022 7:59 AM Mehnaz Childs MD ENDOSCOPY PROCEDURES Final Result from Last 3 Months or Most Recently Relevant to Health Maintenance [place] Advance Directives For more information, please contact: [phone] * Full Code (Latest Code Status on File) Date Activated Date Inactivated Comments 05/01/2022 7:06 AM 05/01/2022 1:01 PM Care Teams Oncology Nurse Relationship Specialty Start Date End Date Josh Lopez MD PCP - General 09/11/16 Marquis Tesfaye MD 09/11/16
--- OUTSIDE RECORDS SUMMARY | 2024-10-17 07:18 | XMS_ITS | Encounter Summary ---
Author Organization [facility] Address [address] [place] [address] Phone Care Team Providers Care Tennis Camp Instructor Name Role Phone Josh Lopez MD Primary Care Provider [phone] Marquis Tesfaye MD Unavailable [phone] Encounter Details Date Type Department Care Team (Late st Contact Info) Description 10/16/2024 Results Follow-Up [facility] Hematology [address] [facility] [address] [place] [address] Ann Marie Villavicencio MD [address] [place] [address] Social History Tobacco Use Types Packs/Day Years [...] on file 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
== END 2024-10-17 07:16 | disposition home or self-care (01) ==
LOC: CHSIMG 07:15
PROVIDERS: PCP Internal Medicine; Visit Provider Internal Medicine
DX: Z12.31 Encounter for screening mammogram for malignant neoplasm of breast (principal)
CPT/HCPCS: 77063; 77067